=== PATIENT | female | born 1970 | race Caucasian/White ===

== ENCOUNTER 2017-01-14 08:49 | Emergency (ER) | payer OTHER ==
--- NOTE | 2017-01-14 09:02 | UC ---
Ear Complaint HPI - HPI Summary HPI Summary: 46 year old female presents with complains of left ear pain. - History of Current Complaint Chief Complaint: UCEar Stated Complaint: EAR PAIN Time Seen by Provider: 01/14/17 09:01 - Allergies/Home Medications Allergies/Adverse Reactions: Allergies Allergy/AdvReac Type Severity Reaction Status Date / Time Naproxen [From Aleve] Allergy Palpitation Verified 12/24/15 15:18 s PMH/Surg Hx/FS Hx/Imm Hx - Surgical History Surgical History: None - Social History Alcohol Use: Rare Substance Use Type: None Smoking Status (MU): Never Smoked Tobacco Review of Systems Constitutional: Negative Skin: Negative Eyes: Negative ENT: Ear Ache Respiratory: Negative Cardiovascular: Negative Gastrointestinal: Negative Genitourinary: Negative Motor: Negative Neurovascular: Negative Musculoskeletal: Negative Neurological: Negative Psychological: Negative All Other Systems Reviewed And Are Negative: Yes Physical Exam Triage Information Reviewed: Yes Vital Signs: Initial Vital Signs Temp 36.6 C 01/14/17 08:55 Pulse 48 01/14/17 08:55 Resp 15 01/14/17 08:55 Pulse Ox 100 01/14/17 08:55 Eye Exam: Normal ENT: Positive: Other: - left ear middle effusion Dental Exam: Normal Neck exam: Normal Neck: Positive: 1 Respiratory Exam: Normal Cardiovascular Exam: Normal Abdominal Exam: Normal Musculoskeletal Exam: Normal Neurological Exam: Normal Psychological Exam: Normal Skin Exam: Normal Ear Complaint Course/Dx - Differential Dx/Diagnosis Provider Diagnoses: left ear middle ear effusion Discharge - Discharge Plan Condition: Stable Disposition: HOME Prescriptions: Methylprednisolone [Medrol Dosepak 4 MG*] 4 mg PO .SEE RANJIT INSTRUCTION #21 tab Neomyc/Polym/HC 1% OTIC SUSP* [Cortisporin Otic Susp 1%*] 4 drop LEFT EAR QID # 1 btl Patient Education Materials: Earache (ED) Referrals: Veda ELLIOTT,Lilia Young [Primary Care Provider] - If Needed
[2017-01-14 09:12] VITALS: BP 126/79
== END 2017-01-14 09:13 | disposition home or self-care (01) ==
LOC: UCEAST 08:49
DX: H93.8X2 Other specified disorders of left ear (principal); Z88.6 Allergy status to analgesic agent
CPT/HCPCS: 99211; G0463